=== PATIENT | female | born 1960 | race Caucasian/White ===

== ENCOUNTER 2019-07-15 09:15 | Outpatient (RCR) | payer OTHER, SELFPAY ==
--- NOTE | 2019-05-10 11:08 | PTOPEVAL ---
Thank you for referring this patient to [facility]. Please review, sign, date and return this plan of care IRVING. Pt seen for physical therapy due to chronic back pain with sciatica. She requires additional skilled therapy to address noted impairments. She would benefit from aquatic therapy to address decreased motion, decreased endurance and decreased strength. Cont PT 2-3x/wk x 8 wk to achieve therapy goals. I agree with and certify that the following plan of care is medically necessary. Referring Physician Date Attending Provider: Cate Joy MD Referring Provider: *PT Outpatient Evaluation Start: 05/10/19 09:27 Freq: Status: Active Protocol: Document 05/10/19 09:33 CAP (Rec: 05/10/19 10:47 CAP [id number]) Therapy Assessment Status Assessment Status Assessment Status Evaluation Outpatient Past Medical History Cardiovascular History Hx Hypertension Yes Gastrointestinal History Hx Gastroesophageal Reflux Disease Yes Musculoskeletal History Hx Back Pain Yes: 2 years Reproductive History Hx Endometriosis Yes Pain History Has Past Pain Affected Your Daily Life Yes Evaluation Information Problem Onset 2 years Subjective Information She went hiking in the [place] Query Text:As Reported By Patient/ [place] 2 years when she Family sustained a fall landing on her buttocks. She was carrying a 30# pack. She is performing daily yoga, massage chair, tub soak then stretching before going to work. She is doing a inversion table 2x/day with improved neurological pain into LE. She reports limitations with carrying objects, bending over , walking longer distances, prolonged standing, maintaining upright posture. 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 She reports superintendent terminal radiating pain into elfego LE. She reports she is getting muscle weakness and atrophy due to decreased activities. She has also gained 60#. She is limited with prolonged sitting. If on steroids she is able to mi a hiking vacation, but has
--- NOTE | 2019-06-10 15:53 | PTOPEVAL ---
Thank you for referring this patient to [facility] [place]. Please review, sign, date and return this plan of care IRVING. Pt has received 13 therapy visits to address back/pelvic pain. She has improved pain, improved function and improved joint motion. She is progressing towards her therapy goals. She remains appropriate for additional skilled therapy to achieve therapy goals and achieve maximal function to allow her to return to normal daily and fitness activities. Cont PT 3x/wk x 6 wk. I agree with and certify that the following plan of care is medically necessary. Referring Physician Date Admitting Provider: Attending Provider: Cate Joy MD Referring Provider: *PT Outpatient Re-Evaluation Start: 05/10/19 09:27 Freq: Status: Active Protocol: Document 06/10/19 14:27 CAP (Rec: 06/10/19 15:29 CAP [id number]) Therapy Assessment Status Assessment Status Assessment Status Re-evaluation Outpatient Past Medical History Cardiovascular History Hx Hypertension Yes Gastrointestinal History Hx Gastroesophageal Reflux Disease Yes Musculoskeletal History Hx Back Pain Yes: 2 years Reproductive History Hx Endometriosis Yes Pain History Has Past Pain Affected Your Daily Life Yes Evaluation Information Problem Diagnosis LBP,radiculopathy decreased perineal sensation Onset 2 years Additional Evaluation Detail She has been DX with mono recently. Her hiking trip in is 5 wks. Subjective Information She continues to be stiff in Query Text:As Reported By Patient/ the back and pelvic region at Family the end of the day. She has improved radiating pain to buttock region. She reports improved pain if she is able to sit periodicly during the day. She has improved trunk range with improved pain. She is able to sleep better with decreased frequency of walking up. She does cont to wake with back pain. Reports increased pain with walking and performing normal work duties and ADL's/IADL's. She is able to stand for IADL's for 20-30 min before required sitting rest. She did a quick reaching motion the other day with increased back pain. She is able to tolerate dancing for
--- NOTE | 2019-06-12 17:04 | PCPTNOTE ---
Patient called & cancelled scheduled appointment this date due to weather
--- NOTE | 2019-06-24 16:37 | PCPTNOTE ---
Patient called & cancelled scheduled appointment this date due to sickness
--- NOTE | 2019-06-25 08:40 | PCPTNOTE ---
Patient called & cancelled scheduled appointment this date due to sickness.
--- NOTE | 2019-07-03 16:58 | PCPTNOTE ---
Patient did not show up for scheduled appointment this date.
--- NOTE | 2019-07-08 16:26 | PTOPEVAL ---
Thank you for referring this patient to [facility] [place]. Please review, sign, date and return this plan of care IRVING. Pt has received 21 therapy visit to address continued impairment of soft tissue restrictions, muscle weakness, increased pain with daily activities, decreased joint range and decreased mi with daily and recreational activities. She demonstrates progress towards her therapy goals. Cont PT 3x/wk x 6 wks. I agree with and certify that the following plan of care is medically necessary. Referring Physician Date Attending Provider: Cate Joy MD Referring Provider: *PT Outpatient Re-Evaluation Start: 05/10/19 09:27 Freq: Status: Active Protocol: Document 07/08/19 08:29 RASHAAD (Rec: 07/08/19 09:29 CAP [id number]) Therapy Assessment Status Assessment Status Assessment Status Re-evaluation Outpatient Past Medical History Cardiovascular History Hx Hypertension Yes Gastrointestinal History Hx Gastroesophageal Reflux Disease Yes Musculoskeletal History Hx Back Pain Yes: 2 years Reproductive History Hx Endometriosis Yes Pain History Has Past Pain Affected Your Daily Life Yes Evaluation Information Problem Diagnosis LBP,radiculopathy decreased perineal sensation Onset 2 years Additional Evaluation Detail Her hiking trip in is 5 wks. Subjective Information She has improved radiating Query Text:As Reported By Patient/ pain to buttock region at time Family . She cont to have radiating pain into the LE when walking uneven surfaces and hills vs level surfaces. She cont to have shooting pain into left LE at times. She has the pain when is very tight or bends forward to molded goods spot picker an object. Denies pain with sitting, but cont to have pain when rolling in bed. She is able to turn without grabbing the headboard to assist. She has improved trunk range with improved pain, but remains painful with trunk flex. She is able to stand for IADL's for 1 hour before required sitting rest. She is able to tolerate dancing for longer periods wearing a pain patch on her low back. Her mi to dancing remains 1 1/2 hours of dance
--- NOTE | 2019-07-12 16:33 | PCPTNOTE ---
Patient did not show up for scheduled appointment this date. She was called - message left.
--- NOTE | 2019-08-08 13:28 | PCPTNOTE ---
Patient called & cancelled remaining scheduled appointment due to COVID 19. Will plan for DC.
--- NOTE | 2019-08-08 13:32 | PCPTNOTE ---
Attending Provider: Cate Joy MD Patient:Amber Mack Date of :1960 Patient has not returned for any further treatments since 07/15/2019, therefore she will be discharged from therapy at this time. She was seen for 22 visits from 05/10/19-07/15/19 to address impairments related to back/pelvic pain. Due work commitment with the COVID-19 she is unable to attend additional treatment at this time. The goals have been partially achieved. Thank you for referring this patient to [facility]. Please review, sign, date and return this discharge summary IRVING. I have been updated about the patient's current status and I agree with discharge from the above service at this time. Referring Physician Date
== END 2019-08-08 13:53 | disposition home or self-care (01) ==
LOC: ANHPT 09:15
PROVIDERS: PCP Family Medicine; Visit Provider Family Medicine
DX: M47.817 Spondylosis without myelopathy or radiculopathy, lumbosacral region (principal); M53.87 Other specified dorsopathies, lumbosacral region; G57.03 Lesion of sciatic nerve, bilateral lower limbs
CPT/HCPCS: 97110; 97112; 97113; 97140; 97162

== ENCOUNTER 2020-06-09 08:07 | Outpatient (NON) | payer OTHER, SELFPAY ==
[2020-06-09 11:32] LABS: Influenza Control Positive
== END 2020-06-09 08:08 ==
PROVIDERS: PCP Family Medicine; Visit Provider Family Medicine
DX: B34.9 Viral infection, unspecified (principal)
CPT/HCPCS: 87804

== ENCOUNTER 2021-07-30 10:03 | Outpatient (CLI) | payer OTHER, SELFPAY ==
--- NOTE | ~2021-07-30 | MM_ITS ---
EXAMINATION: MM screening zackary BI w mira HISTORY: Screening TECHNIQUE: Craniocaudal and mediolateral oblique 3-D tomosynthesis images were obtained and synthetic 2-D images were generated. CAD analysis was submitted and interpreted. COMPARISON: Comparison to multiple prior studies sequentially, with oldest reviewed study dated 08/22. BREAST PARENCHYMAL COMPOSITION: There are scattered areas of fibroglandular density. FINDINGS: There is no evidence of suspicious mass, calcification, or architectural distortion to sugg est malignancy in either breast. There has been no suspicious interval change. IMPRESSION: 1. No mammographic evidence of malignancy. 2. Recommend routine screening mammography in one year. BI-RADS Category 1: Negative Reviewed, dictated and finalized at location A.
== END 2021-07-30 10:04 | disposition home or self-care (01) ==
LOC: ANHIMG 10:04
PROVIDERS: PCP Family Medicine; Visit Provider Family Medicine
DX: Z12.31 Encounter for screening mammogram for malignant neoplasm of breast (principal)
CPT/HCPCS: 77063; 77067

== ENCOUNTER 2021-09-20 14:31 | Outpatient (RCR) | payer OTHER, SELFPAY ==
[2021-09-20] MEDS: ACETAMINOPHEN 325 MG TABLET 650 MG PO (14:36)
[2021-09-20] MEDS: diphenhydrAMINE HCl CAP 25 MG CAPSULE PO (14:37)
[2021-09-20] MEDS: FAMOTIDINE 20 MG TABLET PO (14:37)
[2021-09-20 14:40] VITALS: BP 121/77; PULSE 93; RESP 18; TEMP 37.2; O2SAT 100
[2021-09-20] MEDS: BEBTELOVIMAB 175 MG/2 ML VIAL IV PUSH (15:00)
[2021-09-20 15:39] VITALS: BP 120/77; PULSE 85; O2SAT 99
== END 2021-09-20 16:19 | disposition home or self-care (01) ==
LOC: AMCINF 14:31
PROVIDERS: Visit Provider Internal Medicine Hematology & Oncology
DX: U07.1 COVID-19 (principal); J45.909 Unspecified asthma, uncomplicated
CPT/HCPCS: A9270; M0222; Q0222

== ENCOUNTER 2023-01-03 08:33 | Outpatient (CLI) | payer OTHER, SELFPAY ==
[2023-01-03 15:52] LABS: Alanine Aminotransferase 29 U/L (6-35); Albumin Level 4.3 g/dL (3.5-5.1); Alkaline Phosphatase 77 U/L (38-126); Anion Gap 10 mmol/L (8-16); Aspartate Amino Transferase 26 U/L (14-36); Bilirubin,Total 0.3 mg/dL (0.2-1.3); Blood Urea Nitrogen 16 mg/dL (7-17); Calcium 9.1 mg/dL (8.4-10.2); Carbon Dioxide 27 mmol/L (22-30); Chloride 103 mmol/L (98-107); Cholesterol 191 mg/dL (0-200); Estimated Glomerular Filt Rate > 60; Glucose 88 mg/dL (65-110); HDL Direct 49 mg/dL; Potassium 3.6 mmol/L (3.4-5.0); Sodium 140 mmol/L (137-145); Triglycerides 124 mg/dL (<150)
[2023-01-03 16:09] LABS: LDL Cholesterol Direct 114 mg/dL
[2023-01-03 16:23] LABS: Hemoglobin A1C 5.3 % (<5.7)
[2023-01-03 19:59] LABS: Thyroid Stimulating Hormone Reflex 0.189 uIU/mL (0.465-4.68)
[2023-01-04 05:44] LABS: Free T4 Free Thyroxine Reflex 1.53 ng/dL (0.78-2.19)
[2023-01-04 06:40] LABS: Total Triiodothyronine (T3) 1.11 NG/ML (0.97-1.69)
[2023-01-10 07:28] LABS: Reference Lab Test Result 3.9
[2023-01-10 07:42] LABS: Reference Lab Test Result <0.10
[2023-01-10 07:43] LABS: Reference Lab Test Result <0.10
[2023-01-11 12:48] LABS: Reference Lab Test Result 3.9
[2023-01-13 16:11] LABS: Reference Lab Test Result <0.10
== END 2023-01-03 08:34 | disposition home or self-care (01) ==
PROVIDERS: Visit Provider Family Medicine
DX: E78.5 Hyperlipidemia, unspecified (principal); E03.9 Hypothyroidism, unspecified; K76.0 Fatty (change of) liver, not elsewhere classified; Z91.040 Latex allergy status; T78.3XXA Angioneurotic edema, initial encounter
CPT/HCPCS: 36415; 80053; 80061; 83036; 83520; 84439; 84443; 84480; 86001; 86003

== ENCOUNTER 2024-08-25 12:39 | Emergency (ER) | payer OTHER, SELFPAY ==
[2024-08-25] VITALS (20 sets, daily range): BP systolic 132–171; BP diastolic 81–100; PULSE 85–105; RESP 10–30; O2SAT 93–100
--- OUTSIDE RECORDS SUMMARY | 2024-08-25 12:41 | XMS_ITS | Continuity of Care Document ---
Author Organization [facility] Address [address] [place] [address] [place] [address] Phone Care Team Providers Care V/Stol Landing Signal Officer Name Role Phone Yaron Whaley Unavailable Unavailable Procedures Procedure Date Eye Exam & Treatment Refraction Anti-reflective Coating Advance Directives Directive Yes / No Effective Date File Name No Information Encounters Encounter Description Practice Location Reason(s) For Visit Diagnoses Date Provider Providers Copied on Encounter [facility], [address] [place] [address] [address], [place], [place], [id number], tel:[phone] SEC [facility] No Information 9 Crist[address] Marru[address]. [address], [address], . tel:[phone] [facility], [address] [place] [address] [address], [place], [place], [id number], tel:[phone] [facility] No Information [address] [facility] [address] [facility], [address], [place], [place], [id number], [place]. tel:[phone] Consulting Provider: Margi Sandoval, [address] [place] [address], [facility]. tel:[phone] Family History Family Member Type Diagnosis Age At Onset No Information Payers Payer name Insurance type Covered democrat ID Authorjose a king(s) [facility] CI [id number] Social History Type Description Quantity Date Captured Comments Sex Female Smoking Status No Information Chief Complaint And Reason For Visit No Information Reason For Referral Reason For Referral No Information History Of Present Illness Encounter Date Complaint History Of Prese nt Illness No Information Functional Status Date Functional Assessmen t No Information Instructions Date Instruction Additional Infor mation No Information Assessments Type Assessment Date No Information Patient Care Teams Name Effective Dates (start - stop) Status Members No Information
--- OUTSIDE RECORDS SUMMARY | 2024-08-25 12:41 | XMS_ITS | Clinical Summary ---
Author Organization [facility] Address [address] [place] [address] Phone Care Team Providers Care Modeling And Simulation Analyst Name Role Phone Jeffery Joy MD Primary Care Provider [phone] Allergies Active Allergy Reactions Criticality Noted Date Comments Codeine Hallucination 10/19/2015 Latex Hives 10/19/2015 Nitrile Swelling 10/28/2015 EYES AND LIPS SWELL, HOARSE AND COUGH Red Dye Hives 10/19/2015 Unclassified Drug Swelling 10/28/2015 NEOPRENE CAUSES LIP AND EYE SWELLING AND COUGH Medications dexlansoprazole (DEXILANT) 60 mg Delayed Release capsule Take 60 mg by mouth daily. Active levothyroxine 200 mcg tablet Take 200 mcg by mouth Daily LATE. Active amoxicillin-cla vulanate (AUGMENTIN) 875-125 mg tabletIndicatio ns:last dose 10/19/2015 Take 1 Tablet by mouth every 12 hours. Active diazepam (VALIUM) 5 mg tablet Take 5 mg by mouth every 6 hours as needed for Anxiety. Active predniSONE (DELTASONE) 5 mg tablet Take 5 mg by mouth daily. Active buPROPion HCl (WELLBUTRIN XL) 300 mg Extended Release 24 hour tablet Take 300 mg by mouth daily marketing and outreach coordinator. Active topiramate (TOPAMAX) 50 mg tablet Take 50 mg by mouth 2 times daily. Active fluticasone-ofelia anterol (BREO ELLIPTA) 100-25 mcg/dose Disk with Device Take 1 Puff by inhalation daily. 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 Gender Identity Not on file Sexual Orientation Not on file Last Filed Vital Signs Vital Sign Reading Time Taken Comments Blood Pressure 115/76 10/19/2015 12:12 PM CDT Pulse 72 10/19/2015 12:12 PM CDT Temperature - - Respiratory Rate - - Oxygen Saturation 99% 10/19/2015 12:12 PM CDT Inhaled Oxygen Concentration - - Weight 68.5 kg (151 lb) 10/19/2015 12:17 PM CDT Height 157.5 cm (5' 2 ) 10/19/2015 12:17 PM CDT Body Mass Index 27.62 10/19/2015 12:17 PM CDT Plan of Treatment Health Maintenance Due Date Last Done Comments DTAP/TDAP/TD VACCINES (1 - Tdap) 1981 HPV/Cotest (21-29) 1983 CERVICAL CANCER SCREENING 1992 HPV/Cotest (30-65) 1992 PAP SMEAR 1992 BREAST CANCER SCREENING 2002 COLORECTAL SCREENING 2007 Colorectal Cancer Screening 2007 FIT-DNA Q 3 years 2007 FIT/FOBT Q 1 year 2007 Flex Sig/CT Colonography Q 5 years 2007 ZOSTER VACCINE (1 of 2) 2012 INFLUENZA VACCINE (#1) 2023 01/06/2015 RSV VACCINE (60+ or ) (1 - 1-dose 75+ series) 2037 Care Teams Modeling And Simulation Analyst Relationship Specialty Start Date End Date Jeffery Joy MD [address] [place] [address] PCP - General Family Practice 10/19/15
--- NOTE | 2024-08-25 12:49 | ED_ITS ---
HPI - General Adult General Chief complaint: Allergic Reaction Stated complaint: allergic reaction Time Seen by Provider: 08/25/24 12:41 History of Present Illness HPI narrative: 64-year-old female with history of latex allergy presents to the emergency department for evaluation for allergic reaction after being exposed to latex. Patient did get an EpiPen but had had no significant response to this. Patient also did take 50 of Benadryl in 50 of prednisone. Patient presented emergency department for further evaluation. Patient does report some hoarseness of her throat with some tingling of her face. Related Data Home Medications ?Medication ?Instructions ?Recorded ?Confirmed ?Last Taken ?Type fluticasone furoate 200 1 inh inhalation DAILY 09/20/21 09/20/21 Unknown History mcg-vilanterol 25 mcg/dose inhalation powder (Breo Ellipta) Allergies Allergy/AdvReac Type Severity Reaction Status Date / Time latex Allergy Severe Hives / Verified 06/10/20 08:39 Red Face/hoarseness/ cough avocado Allergy Unknown Facial Verified 06/10/20 08:39 swelling banana Allergy Unknown Facial Verified 06/10/20 08:39 swelling nitrile Allergy Unknown Hives / Verified 06/10/20 08:39 Red Face red dye Allergy Unknown Hives Verified 06/10/20 08:39 codeine AdvReac Unknown Nausea,Bhatt Verified 08/25/24 12:44 ucinations Review of Systems Review of Systems: All systems reviewed & are unremarkable except as noted in HPI and below PMFSH Past Medical History Medical History (Updated 08/25/24 @ 15:56 by Jerod Ferrara MD) COVID-19 Hx of infectious mononucleosis 2019 History of colitis 2019 Exam Narrative: APPEARANCE: Well appearing, no pain, no distress, well-nourished. HEAD: normocephalic, atraumatic. EYES: PERRLA/EOMI, conjunctivae clear. NOSE: Normal no drainage EARS:TMS clear with good light reflex. THROAT: Pharynx clear, no exudate. NECK: Supple. No adenopathy, no masses. RESPIRATORY: Airway patent, respirations nonlabored. Clear to auscultation bilaterally, no rales, rhonchi, wheezing. CARDIOVASCULAR: Regular rate and rhythm without murmurs rubs or gallops. ABDOMINAL: Soft, nontender, nondistended, normal bowel sounds MUSCULOSKELETAL: Moves all extremities. Strength/ROM intact, No edema, No calf tenderness. NEURO: Alert. Cranial nerves II through XII intact. Good gait. Good coordination SKIN: Warm, dry. Normal Color Course Vital Signs Vital signs: Vital Signs Pulse Rate 91 08/25/24 12:43 Respiratory Rate 16 08/25/24 12:43 Blood Pressure 171/100 H 08/25/24 12:43 Pulse Oximetry 99 08/25/24 12:43 Oxygen Delivery Room Air 08/25/24 12:43 Pulse Rate 105 H 08/25/24 16:11 Respiratory Rate 17 08/25/24 16:11 Blood Pressure 137/89 08/25/24 16:11 Pulse Oximetry 95 08/25/24 16:11 Oxygen Delivery Room Air 08/25/24 12:43 Medical Decision Making MDM Narrative Medical decision making narrative: 64-year-old female with a significantly text allergy presenting to the emergency department for evaluation for reaction to latex. Patient walked into a home where latex plans had been popped. Patient did take her EpiPen, 50 mg of prednisone and 50 mg Benadryl suspects that her EpiPen has . Patient was treated with 125 of Solu-Medrol IV, 0.3 mg epi subQ and 20 mg of IV famotidine patient felt her symptoms did improve but after approximately 1 hour she did have worsening tightening of her throat and patient was treated with additional 0.5 mg IV Benadryl. On re-evaluation patient states she does feel back to normal. This was at the 1.5 hour kaity. Patient family are comfortable waiting for additional 1.5 hours for the epinephrine to continue to wear off. Patient does report that she has EpiPen, Benadryl prednisone prescriptions for home. Differential Diagnosis Differential Diagnosis: Anaphylaxis, angioedema, allergic reaction Vital Signs Vital Signs: Vital Signs Pulse Rate 91 08/25/24 12:43 Respiratory Rate 16 08/25/24 12:43 Blood Pressure 171/100 H 08/25/24 12:43 Pulse Oximetry 99 08/25/24 12:43 Oxygen Delivery Room Air 08/25/24 12:43 Pulse Rate 105 H 08/25/24 16:11 Respiratory Rate 17 08/25/24 16:11 Blood Pressure 137/89 08/25/24 16:11 Pulse Oximetry 95 08/25/24 16:11 Oxygen Delivery Room Air 08/25/24 12:43 Discharge Plan Discharge Clinical Impression: Allergic reaction Patient Disposition: Home Condition: Stable Instructions: Antibiotic Form, General Allergic Reaction (ED) Additional Instructions: Prednisone burst for the next 5 days is recommended. Benadryl as needed. If you have any worsening symptoms please call or return to the emergency department. Patient Language: Setswana Prescriptions: No Action Breo Ellipta 200-25 mcg/dose Blister With Device 1 inh INHALATION DAILY epinephrine [EpiPen 2-Kashif] 0.3 mg/0.3 mL auto-injector 0.3 mg IM ONCE Qty: 4 1RF Rx Instructions: as a single dose; may repeat once valacyclovir [Valtrex] 1 gram tablet 1,000 mg PO TID Qty: 21 1RF triamterene-hydrochlorothiazid 37.5-25 mg capsule See Rx Instructions .ROUTE .COMPLEX Qty: 90 3RF Dose Instruction: TAKE 1 CAPSULE BY MOUTH DAILY Rx Instructions: TAKE 1 CAPSULE BY MOUTH DAILY levothyroxine [Synthroid] 200 mcg tablet 200 mcg PO DAILY Qty: 90 3RF esomeprazole magnesium 40 mg capsule,delayed release(DR/EC) 40 mg PO DAILY Qty: 90 3RF Rx Instructions: generic - No Red Dye bupropion HCl [Wellbutrin XL] 300 mg tablet extended release 24 hr 300 mg PO QAM Qty: 90 3RF prednisone 20 mg tablet 20 mg PO .COMPLEX Qty: 50 1RF Rx Instructions: 20 mg bid for 1 week, q day for 1 week prednisone 50 mg tablet 50 mg PO DAILY PRN (Reason: latex reaction) Qty: 30 1RF montelukast [Singulair] 10 mg tablet 10 mg PO QHS Qty: 90 1RF Follow-up/Referrals: UNKNOWN,DOCTOR [Non-Staff] -
[2024-08-25] MEDS: EPINEPHrine HCL INJ 1 MG/ML AMPUL 0.3 MG IM (12:52)
[2024-08-25] MEDS: ALBUTEROL SULFATE NEB 2.5 MG/3 ML INH 5 MG INHALATION (12:55)
[2024-08-25] MEDS: methylPREDNISolone SOD SUCC 125 MG VIAL IV PUSH (12:57)
[2024-08-25] MEDS: FAMOTIDINE 20 MG/2 ML VIAL IV PUSH (12:57)
--- OUTSIDE RECORDS SUMMARY | 2024-08-25 12:57 | XMS_ITS | Continuity of Care Document ---
Author Organization [facility] Address [address] [place] [address] [place] [address] Phone Care Team Providers Care Embedded Linux Engineer Name Role Phone Yaron Whaley Unavailable Unavailable Procedures Procedure Date Eye Exam & Treatment Refraction Anti-reflective Coating Advance Directives Directive Yes / No Effective Date File Name No Information Encounters Encounter Description Practice Location Reason(s) For Visit Diagnoses Date Provider Providers Copied on Encounter [facility], [address] [place] [address] [address], [place], [place], [id number], tel:[phone] SEC [facility] No Information 9 Cristobalarikkg Marrufo. [address], [address], . tel:[phone] [facility], [address] [place] [address] [address], [place], [place], [id number], tel:[phone] [facility] No Information [address] [facility]. [address] [facility], [address], [place], [place], [id number], [place]. tel:[phone] Consulting Provider: Margi Sandoval, [address] [place] [address], [facility]. tel:[phone] Family History Family Member Type Diagnosis Age At Onset No Information Payers Payer name Insurance type Covered republican ID Authorjose a king(s) [facility] CI [id number] Social History Type Description Quantity Date Captured [...]
[2024-08-25] MEDS: diphenhydrAMINE HCl INJ 50 MG/ML VIAL 25 MG IV PUSH (13:44)
== END 2024-08-25 16:13 | disposition home or self-care (01) ==
PROVIDERS: Emergency Provider Emergency Medicine; PCP Family Medicine
DX: T65.811A Toxic effect of latex, accidental (unintentional), initial encounter (principal); R20.2 Paresthesia of skin; Z86.16 Personal history of COVID-19; Z79.899 Other long term (current) drug therapy; Z79.1 Long term (current) use of non-steroidal anti-inflammatories (NSAID)
CPT/HCPCS: 94640; 96372; 96374; 96375; 99284; J0171; J1200; J2919

== ENCOUNTER 2025-04-09 14:08 | Emergency (ER) | payer OTHER, SELFPAY ==
[2025-04-09 14:17] VITALS: BP 118/86; PULSE 103; RESP 13; O2SAT 96
[2025-04-09 14:20] VITALS: BP 118/86; PULSE 104; RESP 16; TEMP 36.6; O2SAT 96
[2025-04-09 14:23] LABS: Hematocrit 43.6 % (37.0-47.0); Hemoglobin 14.9 g/dL (12.0-15.0); Immature Granulocyte Percent A 0.3 % (0-0.5); Lymphocytes Absolute Auto 3.86 K/mm3 (0.9-3.2); Mean Corpuscular HGB Conc 34.2 g/dl (32-36); Mean Corpuscular Hemoglobin 30.7 pg (26-34); Mean Corpuscular Volume 89.7 fl (80-100); Nucleated Red Blood Cells Absolute Auto 0.000 K/mm3 (0.0-0.012); Nucleated Red Blood Cells Perc 0.0 % (0.0-0.2); Platelet Count Result 291 k/mm3 (150-375); Red Blood Count 4.86 M/mm3 (4.2-5.4); White Blood Count 9.3 K/mm3 (4.5-10.0)
[2025-04-09] MEDS: FAMOTIDINE 20 MG/2 ML VIAL IV PUSH (14:29)
[2025-04-09] MEDS: LACTATED RINGERS 1,000 ML 999 ML IV CONT (14:29)
[2025-04-09 14:31] VITALS: BP 101/74; PULSE 101; RESP 17; O2SAT 96
[2025-04-09 14:35] LABS: Alanine Aminotransferase 27 U/L (6-35); Albumin Level 4.5 g/dL (3.5-5.1); Alkaline Phosphatase 94 U/L (38-126); Anion Gap 9 mmol/L (4-12); Aspartate Amino Transferase 26 U/L (14-36); Bilirubin,Total 0.5 mg/dL (0.2-1.3); Blood Urea Nitrogen 20 mg/dL (7-17); Calcium 9.4 mg/dL (8.4-10.2); Carbon Dioxide 25 mmol/L (22-30); Chloride 104 mmol/L (98-107); Estimated CRCL calculation 63 ml/min; Estimated Glomerular Filt Rate > 60; Glucose 142 mg/dL (65-110); Potassium 3.7 mmol/L (3.4-5.0); Sodium 138 mmol/L (137-145); Total Protein 8.0 g/dL (6.3-8.2)
[2025-04-09 15:02] VITALS: BP 101/84; PULSE 102; RESP 13; O2SAT 96
[2025-04-09 15:05] LABS: Thyroid Stimulating Hormone Reflex < 0.015 uIU/mL (0.465-4.68)
--- OUTSIDE RECORDS SUMMARY | 2025-04-09 15:23 | XMS_ITS | Clinical Summary ---
Author Organization [facility] Address [address] [place] [address] Phone Care Team Providers Care Director Of Medical Staff Services Name Role Phone Jeffery Joy MD Primary Care Provider [phone] Allergies Active Allergy Reactions Criticality Noted Date [...] tablet Take 300 mg by mouth daily tail ripper. 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
[2025-04-09 15:43] LABS: Free T4 Free Thyroxine Reflex 1.66 ng/dL (0.78-2.19)
[2025-04-09 16:05] VITALS: BP 105/76; PULSE 107; RESP 20; O2SAT 97
--- NOTE | 2025-04-09 16:05 | ED.ALLEREA ---
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 Related Data Home Medications ?Medication ?Instructions ?Recorded ?Confirmed ?Last Taken ?Type fluticasone furoate 200 1 inh inhalation DAILY 09/20/21 09/20/21 Unknown History mcg-vilanterol 25 mcg/dose inhalation powder (Breo Ellipta) Allergies Allergy/AdvReac Type Severity Reaction Status Date / Time latex Allergy Severe Hives / Verified 06/10/20 08:39 Red Face/hoarseness/ cough red dye Allergy Severe Hives Verified 11/15/24 13:30 avocado Allergy Unknown Facial Verified 06/10/20 08:39 swelling banana Allergy Unknown Facial Verified 06/10/20 08:39 swelling codeine AdvReac Unknown Nausea,Bhatt Verified 08/25/24 12:44 ucinations Review of Systems Review of Systems: All systems reviewed & are unremarkable except as noted in HPI and below PMFSH Past Medical History Medical History (Updated 04/09/25 @ 15:40 by Florida Moss MD) COVID-19 Hx of infectious mononucleosis 2019 History of colitis 2019 Exam Narrative: EXAMINATION OF ORGAN SYSTEMS/BODY AREAS: Constitutional: Vital signs per nursing GENERAL:No acute distress, non-toxic appearing. HEAD: Normal with no signs of head trauma. EYES: EOMI, conjunctiva normal ENT: Slightly hoarse voice, but no significant swelling the tongue, lips, oropharynx visualized LUNGS: Nonlabored breathing. Clear to auscultation bilaterally HEART: Tachycardic ABD: Soft, nontender to palpation EXT: Normal range of motion SKIN: No rashes or lesions. NEURO: Alert. No gross focal sensory or strength deficits. PSYCH: Normal affect Course Vital Signs Vital signs: Vital Signs Pulse Rate 103 H 04/09/25 14:17 Respiratory Rate 13 04/09/25 14:17 Blood Pressure 118/86 04/09/25 14:17 Pulse Oximetry 96 04/09/25 14:17 Temperature 97.8 F 04/09/25 14:20 Pulse Rate 102 H 04/09/25 15:02 Respiratory Rate 13 04/09/25 15:02 Blood Pressure 101/84 04/09/25 15:02 Pulse Oximetry 96 04/09/25 15:02 Oxygen Delivery Room Air 04/09/25 14:20 MDM MDM Narrative Medical decision making narrative: MEDICAL DECISION MAKING AND COURSE IN THE ED WITH INTERPRETATION/REVIEW OF DIAGNOSTIC STUDIES: Electronic medical record was reviewed. Patient presented to the ED with a complaint of some suspected anaphylaxis to latex. Vitals slightly tachycardic. Physical exam revealed slightly hoarse voice. Patient was given famotidine, IV fluids. On re-evaluation, the patient was feeling improved. 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 Differential Diagnosis Differential Diagnosis: Allergic reaction, anaphylaxis, angioedema, anxiety Lab Data 04/09/25 14:18 04/09/25 14:18 Labs: Lab Results 04/09/25 Range/Units 14:18 WBC 9.3 (4.5-10.0) K/mm3 RBC 4.86 (4.2-5.4) M/mm3 Hgb 14.9 (12.0-15.0) g/dL Hct 43.6 (37.0-47.0) % MCV 89.7 (80-100) fl MCH 30.7 (26-34) pg MCHC 34.2 (32-36) g/dl RDW 13.5 (11.5-14.5) % Plt Count 291 (150-375) k/mm3 MPV 9.3 (7.4-10.4) fl Immature Gran % (Auto) 0.3 (0-0.5) % Neut % (Auto) 46.9 (45.5-73.1) % Lymph % (Auto) 41.6 (18.3-44.2) % Granite % (Auto) 8.7 H (2.6-8.5) % Eos % (Auto) 1.9 (0-4.4) % Baso % (Auto) 0.6 (0.2-1.2) % Lymph # (Auto) 3.86 H (0.9-3.2) K/mm3 Granite # (Auto) 0.8 H (0.1-0.6) K/mm3 Eos # (Auto) 0.2 (0-0.3) K/mm3 Baso # (Auto) 0.1 (0.0-0.1) K/mm3 Abs Immat Gran (auto) 0.03 (0.00-0.031) K/mm3 Absolute Neuts (auto) 4.4 (1.3-6.7) K/mm3 Absolute Nucleated RBC 0.000 (0.0-0.012) K/mm3 Nucleated RBC % 0.0 (0.0-0.2) % Sodium 138 (137-145) mmol/L Potassium 3.7 (3.4-5.0) mmol/L Chloride 104 (98-107) mmol/L Carbon Dioxide 25 (22-30) mmol/L Anion Gap 9 (4-12) mmol/L BUN 20 H (7-17) mg/dL Creatinine 0.81 (0.7-1.0) mg/dL Estim Creat Clear Calc 63 ml/min Estimated GFR > 60 (59 - ) Glucose 142 H (65-110) mg/dL Calcium 9.4 (8.4-10.2) mg/dL Total Bilirubin 0.5 (0.2-1.3) mg/dL AST 26 (14-36) U/L ALT 27 (6-35) U/L Alkaline Phosphatase 94 (38-126) U/L Total Protein 8.0 (6.3-8.2) g/dL Albumin 4.5 (3.5-5.1) g/dL TSH (Reflex) < 0.015 L (0.465-4.68) uIU/mL Free T4 1.66 (0.78-2.19) ng/dL Total T3 Pending Discharge Plan Discharge Clinical Impression: Allergic reaction Patient Disposition: Home Condition: Stable Instructions: Anaphylaxis (ED) Additional Instructions: Please follow up with your doctor; take the medications as prescribed. If your symptoms return, give yourself the EpiPen and come back to the ER. Patient Language: Portuguese Prescriptions: New epinephrine [EpiPen] 0.3 mg/0.3 mL auto-injector 0.3 mg IM Q5-15M PRN (Reason: anaphylaxis) Qty: 4 2RF Rx Instructions: do not exceed 3 doses per episode famotidine 20 mg tablet 20 mg PO DAILY Qty: 30 0RF loratadine 10 mg tablet 10 mg PO DAILY Qty: 30 0RF prednisone 20 mg tablet 40 mg PO DAILY 4 Days Qty: 8 0RF No Action Breo Ellipta 200-25 mcg/dose Blister With Device 1 inh INHALATION DAILY valacyclovir [Valtrex] 1 gram tablet 1,000 mg PO TID Qty: 21 1RF prednisone 20 mg tablet 20 mg PO .COMPLEX Qty: 50 1RF Rx Instructions: 20 mg bid for 1 week, q day for 1 week prednisone 50 mg tablet 50 mg PO DAILY PRN (Reason: latex reaction) Qty: 30 1RF bupropion HCl [Wellbutrin XL] 300 mg tablet extended release 24 hr 300 mg PO QAM Qty: 30 1RF bupropion HCl [Wellbutrin XL] 300 mg tablet extended release 24 hr 300 mg PO QAM Qty: 90 3RF Rx Instructions: NO RED DYE triamterene-hydrochlorothiazid 37.5-25 mg capsule See Rx Instructions .ROUTE .COMPLEX Qty: 90 3RF Dose Instruction: TAKE 1 CAPSULE BY MOUTH DAILY Rx Instructions: TAKE 1 CAPSULE BY MOUTH DAILY NO RED DYE-Pt is allergic montelukast [Singulair] 10 mg tablet 10 mg PO QHS Qty: 90 3RF Rx Instructions: No Red Dye esomeprazole magnesium 40 mg capsule,delayed release(DR/EC) 40 mg PO DAILY Qty: 90 3RF Rx Instructions: generic - No Red Dye levothyroxine [Synthroid] 200 mcg tablet 200 mcg PO DAILY Qty: 90 3RF mupirocin [Centany] 2 % ointment 1 applic topical TID Qty: 22 1RF epinephrine [EpiPen 2-Kashif] 0.3 mg/0.3 mL auto-injector 0.3 mg IM ONCE Qty: 4 3RF Rx Instructions: as a single dose; may repeat once Follow-up/Referrals: Jad Mack MD [Primary Care Provider, Family Practice]
[2025-04-09 16:23] LABS: Total Triiodothyronine (T3) 1.09 NG/ML (0.82-1.58)
== END 2025-04-09 16:17 | disposition home or self-care (01) ==
PROVIDERS: Emergency Provider Emergency Medicine; PCP Family Medicine
DX: T65.811A Toxic effect of latex, accidental (unintentional), initial encounter (principal); R22.0 Localized swelling, mass and lump, head; Z86.16 Personal history of COVID-19
CPT/HCPCS: 36415; 80053; 84439; 84443; 84480; 85025; 96361; 96374; 99284; J7120